=== PATIENT | male | born 1995 | race Caucasian/White ===

== ENCOUNTER 2020-06-15 18:20 | Emergency (ER) | payer OTHER, MEDICAID ==
[~2020-06-15] VITALS: Ht 180.3 cm; Wt 75.0 kg
[2020-06-15] MEDS ORDERED: BACITRACIN ZINC OINT UDPKT TOP ONE (18:45)
[2020-06-15] MEDS ORDERED: LIDOCAINE 1%/EPI 1:100,000 10 ML VIAL IJ ONE (18:45)
[2020-06-15] MEDS ORDERED: TETANUS, DIPHTHERIA, PERTUSSIS VAC/PF 0.5ML (>7YR OLD) IM ONE (18:45)
[2020-06-15] MEDS ORDERED: IBUPROFEN 600MG TABLET PO ONE (18:45)
[2020-06-15 20:35] VITALS: BP 121/69
== END 2020-06-15 20:35 | disposition home or self-care (01) ==
LOC: ER 18:20
DX: S61.512A Laceration without foreign body of left wrist, initial encounter (principal); F17.200 Nicotine dependence, unspecified, uncomplicated; W26.8XXA Contact with other sharp object(s), not elsewhere classified, initial encounter; Y93.89 Activity, other specified; Y92.89 Other specified places as the place of occurrence of the external cause; Y99.8 Other external cause status
CPT/HCPCS: 12002; 73110; 90471; 90715; 99283; J3490

== ENCOUNTER 2020-06-26 08:19 | Emergency (ER) | payer MEDICAID ==
[~2020-06-26] VITALS: Ht 172.7 cm; Wt 74.0 kg
[2020-06-26 08:24] VITALS: BP 106/44
== END 2020-06-26 08:55 | disposition home or self-care (01) ==
LOC: ER 08:40
DX: S61.512D Laceration without foreign body of left wrist, subsequent encounter (principal); X58.XXXD Exposure to other specified factors, subsequent encounter
CPT/HCPCS: 99281